=== PATIENT | male | born 1995 | race African-American/Black ===

== ENCOUNTER 2018-05-07 20:21 | Emergency (ER) | payer OTHER ==
[~2018-05-07] VITALS: Ht 170.2 cm; Wt 64.0 kg
[2018-05-07 21:48] VITALS: BP 121/64
[2018-05-08] MEDS ORDERED: FLUORESCEIN SODIUM 1MG/STRIP RIGHTEYE ONE (02:00)
[2018-05-08] MEDS ORDERED: TETRACAINE 0.5% OPHTH DROPS 4ML RIGHTEYE ONE (02:00)
== END 2018-05-08 02:45 | disposition home or self-care (01) ==
LOC: ER 20:21
DX: H10.021 Other mucopurulent conjunctivitis, right eye (principal); F12.10 Cannabis abuse, uncomplicated; Z98.890 Other specified postprocedural states
CPT/HCPCS: 99283

== ENCOUNTER 2018-08-13 06:14 | Emergency (ER) | payer OTHER ==
[~2018-08-13] VITALS: Ht 170.2 cm; Wt 66.0 kg
[2018-08-13 06:31] VITALS: BP 118/50
== END 2018-08-13 09:06 | disposition home or self-care (01) ==
LOC: ER 06:14
DX: K52.9 Noninfective gastroenteritis and colitis, unspecified (principal); H00.14 Chalazion left upper eyelid
CPT/HCPCS: 99283

== ENCOUNTER 2019-04-27 23:29 | Emergency (ER) | payer OTHER ==
[~2019-04-27] VITALS: Ht 170.2 cm; Wt 72.2 kg
[2019-04-28] MEDS ORDERED: ACETAMINOPHEN 325MG TABLET PO ONE (02:00)
[2019-04-28] MEDS ORDERED: ONDANSETRON HCL 4MG/2ML INJ IV ONE (02:00)
[2019-04-28 02:30] LABS: CHLORIDE 98 mEq/L (98-107)
[2019-04-28 02:35] LABS: HEMATOCRIT. 48.4 % (42.0-52.0); HEMOGLOBIN. 16.8 g/dL (14.0-18.0); MEAN CORPUSCULAR HEMOGLOBIN 30.5 pg (28.0-32.0); MEAN CORPUSCULAR VOLUME 87.6 fL (80.0-94.0); MEAN PLATELET VOLUME 9.5 fl (7.4-10.4); PLATELET 182 x1000/uL (130-400); RED BLOOD CELL COUNT 5.52 mill/uL (4.7-6.1); RED CELL DISTRIBUTION WIDTH 13.6 % (11.6-14.6)
[2019-04-28 04:27] LABS: PLATELET ESTIMATE NORMAL
[2019-04-28 04:35] LABS: *AMPHETAMINES SCREEN URINE NEGATIVE (NEGATIVE); *BARBITURATES SCREEN URINE NEGATIVE (NEGATIVE); CANNABINOID URINE SCREEN PRESUMTIVE POSITIVE (NEGATIVE); PHENCYCLIDINE URINE SCREEN NEGATIVE (NEGATIVE)
[2019-04-28 04:36] LABS: *BENZODIAZEPINES SCREEN URINE NEGATIVE (NEGATIVE); *COCAINE SCREEN URINE NEGATIVE (NEGATIVE); METHADONE URINE SCREEN NEGATIVE (NEGATIVE); OPIATES URINE SCREEN NEGATIVE (NEGATIVE)
[2019-04-28 05:16] VITALS: BP 120/72
== END 2019-04-28 05:18 | disposition home or self-care (01) ==
LOC: ER 23:29
DX: B34.9 Viral infection, unspecified (principal); R11.10 Vomiting, unspecified; R51 Headache; F12.10 Cannabis abuse, uncomplicated
CPT/HCPCS: 36415; 70450; 71045; 80048; 80305; 85025; 87804; 96374; 99284; J2405; Z7610

== ENCOUNTER 2019-05-10 08:25 | Emergency (ER) | payer OTHER ==
[~2019-05-10] VITALS: Ht 180.3 cm; Wt 68.0 kg
[2019-05-10] MEDS ORDERED: DICYCLOMINE 10 MG/5 ML ORAL SYR PO STA (10:20)
[2019-05-10] MEDS ORDERED: KETOROLAC 30MG/ML VIAL IV STA (10:20)
[2019-05-10] MEDS ORDERED: SODIUM CHLORIDE 0.9% 1,000 ML IV ONE (10:20)
[2019-05-10] MEDS ORDERED: ONDANSETRON HCL 4MG/2ML INJ IV STA (10:20)
[2019-05-10] MEDS ORDERED: MAGNESIUM/ALUMINUM HYDROXIDE/SIMETHICONE 30ML UDC PO STA (10:20)
[2019-05-10] MEDS ORDERED: VISCOUS LIDOCAINE 2% 15 ML UDC PO STA (10:20)
[2019-05-10 13:03] VITALS: BP 120/63
== END 2019-05-10 13:25 | disposition home or self-care (01) ==
LOC: ER 08:25
DX: K12.1 Other forms of stomatitis (principal); J02.9 Acute pharyngitis, unspecified; R05 Cough; R11.2 Nausea with vomiting, unspecified; F12.10 Cannabis abuse, uncomplicated
CPT/HCPCS: 87070; 87430; 96361; 96374; 96375; 99284; J1885; J2405; J7030; Z7610

== ENCOUNTER 2019-05-12 02:49 | Emergency (ER) | payer OTHER ==
[2019-05-12 08:00] VITALS: BP 127/69
[2019-05-12] MEDS ORDERED: SODIUM CHLORIDE 0.9% 1,000 ML IV SCH (09:49)
[2019-05-12] MEDS ORDERED: VISCOUS LIDOCAINE 2% 15 ML UDC MM PRN (10:00)
[2019-05-12] MEDS ORDERED: ZOLPIDEM TARTRATE 5MG TABLET PO PRN (10:00)
[2019-05-12] MEDS ORDERED: MAGNESIUM/ALUMINUM HYDROXIDE/SIMETHICONE 30ML UDC PO PRN (10:00)
[2019-05-12] MEDS ORDERED: DIPHENHYDRAMINE 50MG/ML VIAL IV PRN (10:00)
[2019-05-12] MEDS ORDERED: ONDANSETRON HCL 4MG/2ML INJ IV PRN (10:00)
[2019-05-12] MEDS ORDERED: LORAZEPAM 0.5MG TABLET PO PRN (10:00)
[2019-05-12] MEDS ORDERED: CLONIDINE 0.1MG TABLET PO PRN (10:00)
[2019-05-12] MEDS ORDERED: ACETAMINOPHEN 325MG TABLET PO PRN (10:00)
[2019-05-12] MEDS ORDERED: GUAIFENESIN 200MG/10ML SUGAR FREE UDC PO PRN (10:00)
[2019-05-12] MEDS ORDERED: DOCUSATE SODIUM 100MG CAPSULE PO PRN (10:00)
[2019-05-12] MEDS ORDERED: IPRATROPIUM/ALBUTEROL 0.5-3(2.5)MG/3ML NEB NEB PRN (10:00)
[2019-05-12] MEDS ORDERED: KETOROLAC 15MG/ML VIAL IV PRN (10:00)
[2019-05-12] MEDS ORDERED: NITROGLYCERIN 0.4MG TABLET SL SL PRN (10:00)
[2019-05-12 13:46] LABS: HEPATITIS A AB IGM NEGATIVE (NEGATIVE)
[2019-05-12] MEDS ORDERED: METHYLPREDNISOLONE SOD SUCC 125 MG/2 ML VIAL IV SCH (14:00)
[2019-05-12] MEDS ORDERED: CLINDAMYCIN 900 MG in DEXTROSE 5% WATER 50 ML IV SCH (14:00)
[2019-05-12 15:39] LABS: HEPATITIS B SURFACE ANTIGEN NEGATIVE
[2019-05-12] MEDS ORDERED: ASCORBIC ACID 500 MG TABLET PO SCH (21:00)
[2019-05-12] MEDS ORDERED: FAMOTIDINE 20MG TABLET PO SCH (21:00)
[2019-05-13] MEDS ORDERED: ZINC SULFATE 220 MG ( 50 ) CAPSULE PO SCH (09:00)
== END 2019-05-12 10:18 | disposition left against medical advice (07) ==
LOC: ER 02:49 → ENRESERV 10:49 → CANRESERV 10:49 → CANBEDREQ 21:09
DX: E86.0 Dehydration (principal); R21 Rash and other nonspecific skin eruption; R42 Dizziness and giddiness; R53.1 Weakness; R11.10 Vomiting, unspecified
CPT/HCPCS: 36415; 80061; 83036; 86140; 86705; 86709; 86803; 87340; 99281; 99283

== ENCOUNTER → 2019-05-12 | Emergency (ER) | payer OTHER ==
[2019-05-12 11:32] LABS: CHLORIDE 97 mEq/L (98-107)
[2019-05-12 11:33] LABS: *AMPHETAMINES SCREEN URINE NEGATIVE (NEGATIVE); *BARBITURATES SCREEN URINE NEGATIVE (NEGATIVE); *BENZODIAZEPINES SCREEN URINE NEGATIVE (NEGATIVE); *COCAINE SCREEN URINE NEGATIVE (NEGATIVE); CANNABINOID URINE SCREEN PRESUMTIVE POSITIVE (NEGATIVE); METHADONE URINE SCREEN NEGATIVE (NEGATIVE); OPIATES URINE SCREEN PRESUMTIVE POSITIVE (NEGATIVE); PHENCYCLIDINE URINE SCREEN NEGATIVE (NEGATIVE)
[2019-05-12 12:07] LABS: HEMATOCRIT. 40.8 % (42.0-52.0); HEMOGLOBIN. 14.3 g/dL (14.0-18.0); MEAN CORPUSCULAR HEMOGLOBIN 30.2 pg (28.0-32.0); MEAN CORPUSCULAR VOLUME 85.8 fL (80.0-94.0); MEAN PLATELET VOLUME 8.5 fl (7.4-10.4); PLATELET 286 x1000/uL (130-400); RED BLOOD CELL COUNT 4.75 mill/uL (4.7-6.1); RED CELL DISTRIBUTION WIDTH 13.1 % (11.6-14.6)
[2019-05-12 14:00] LABS: PLATELET ESTIMATE NORMAL
== END ==
LOC: ER 02:50
DX: E86.0 Dehydration (principal); L98.499 Non-pressure chronic ulcer of skin of other sites with unspecified severity; R21 Rash and other nonspecific skin eruption; K14.0 Glossitis; K13.0 Diseases of lips; J39.2 Other diseases of pharynx; R53.1 Weakness; R42 Dizziness and giddiness; R11.10 Vomiting, unspecified; F12.10 Cannabis abuse, uncomplicated
CPT/HCPCS: 36415; 71045; 80305; 83605; 99284